=== PATIENT | male | born 1980 | race Caucasian/White ===

== ENCOUNTER 2017-11-04 07:13 | Day surgery (SDC) | payer BC, OTHER ==
[~2017-11-04] VITALS: Ht 180.3 cm; Wt 78.1 kg
[~2017-11-04 07:13] MED LIST: LIDOCAINE/MPF 2%-EPI 1:200K, 20 ML ONE; ROPIvacaine/PF 0.5%, 30 ML ONE
[2017-11-04] MEDS ORDERED: LACTATED RINGERS 1,000 ML IV SCH (07:38)
[2017-11-04 07:39] VITALS: BP 133/94
[2017-11-04] MEDS ORDERED: NO MEDS PER PT (07:39)
[2017-11-04] MEDS ORDERED: MIDAZOLAM 1 MG/ML, 2ML ONE (08:15)
[2017-11-04] MEDS ORDERED: FENTANYL PF 100 MCG/2ML ONE ×2 (08:16→09:55)
[2017-11-04] MEDS ORDERED: MEPERIDINE/PF 25MG/0.5ML IVPush PRN (08:30)
[2017-11-04] MEDS ORDERED: FENTANYL PF 100 MCG/2ML IV PRN (08:30)
[2017-11-04] MEDS ORDERED: ALBUTEROL SULFATE 2.5 MG/3 ML NPPB PRN (08:30)
[2017-11-04] MEDS ORDERED: LABETALOL 5MG/ML, 20ML IV PRN (08:30)
[2017-11-04] MEDS ORDERED: morphine SULFATE 10 MG/ML, 1ML IV PRN (08:30)
[2017-11-04] MEDS ORDERED: PROMETHAZINE 12.5 MG SUPP PR PRN (08:30)
[2017-11-04] MEDS ORDERED: LORazepam 2 MG/ML, 1ML IVPush PRN (08:30)
[2017-11-04] MEDS ORDERED: PROMETHAZINE 25 MG/ML, 1ML IV PRN (08:30)
[2017-11-04] MEDS ORDERED: hydrALAzine 20 MG/ML, 1ML IV PRN (08:30)
[2017-11-04] MEDS ORDERED: OXYcodone 5 MG/5 ML ORAL.SOL UDC PO PRN (08:30)
[2017-11-04] MEDS ORDERED: OXYcodone 5 MG/5 ML ORAL.SOL UDC ONE (09:55)
[2017-11-04] MEDS ORDERED: MORPHINE SULFATE 4 MG/ML, 1ML ONE (09:55)
[2017-11-04] MEDS ORDERED: PROPOFOL 10 MG/ML, 50ML ONE (16:28)
[2017-11-04] MEDS ORDERED: CEFAZOLIN 1,000 MG ONE (16:28)
[2017-11-04] MEDS ORDERED: ONDANSETRON 2MG/ML, 2ML ONE (16:28)
[2017-11-04] MEDS ORDERED: DEXAMETHASONE 4 MG/ML, 1ML ONE (16:28)
== END 2017-11-04 11:40 ==
LOC: OUT 07:13
PROVIDERS: ATTEND Orthopaedic Surgery
DX: S83.242A Other tear of medial meniscus, current injury, left knee, initial encounter (principal); X58.XXXA Exposure to other specified factors, initial encounter; Y93.89 Activity, other specified; Y92.89 Other specified places as the place of occurrence of the external cause; Y99.8 Other external cause status; M94.262 Chondromalacia, left knee; M65.862 Other synovitis and tenosynovitis, left lower leg
CPT/HCPCS: 29881; J0690; J1100; J2270; J2405; J2704; J2795; J3010; J3490; J7120; J2250